=== PATIENT | female | born 2000 | race Caucasian/White ===

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

== ENCOUNTER 2019-04-06 00:15 | Emergency (ER) | payer OTHER ==
[2019-04-06 01:33] LABS: APPEARANCE,URINE SLIGHTLY-CLOUDY; BILIRUBIN,URINE NEGATIVE (NEGATIVE); COLOR,URINE YELLOW; GLUCOSE, URINE NEGATIVE (NEGATIVE); KETONES,URINE TRACE mg/dL (NEGATIVE); LEUKOCYTE ESTERASE,URINE NEGATIVE (NEGATIVE); NITRITE,URINE NEGATIVE (NEGATIVE); PROTEIN,URINE NEGATIVE (NEGATIVE); URINE SPECIFIC GRAVITY 1.021; UROBILINOGEN,URINE NEGATIVE mg/dL (<2.0)
[2019-04-06] MEDS ORDERED: KETOROLAC TROMETHAMINE INJ/PF 30 MG/1 ML SDV IM ONE (02:05)
--- NOTE | 2019-04-06 02:06 | ER Document Report ---
ED General - General Chief Complaint: Abdominal Pain Stated Complaint: ABDOMINAL PAIN Time Seen by Provider: 04/06/19 01:02 Primary Care Provider: ESTRADA SCOTT MD [ACTIVE STAFF] - Follow up in 3-5 days Notes: Patient is a 18-year-old female who presents with complaint of chronic intermittent suprapubic and lower abdominal pain. Says it has feels like uterine cramping. She is being followed by primary care physician was told that she may have pelvic congestion syndrome. She is waiting for referral to an DOUBLE HEAD MACHINE OPERATOR physician. Tonight the pain was more intense than usual. She is prescribed dicyclomine but says it was not working tonight and therefore came to the ER. No abnormal vaginal discharge or bleeding. She is sexually monogamous. She denies concern for sexually transmitted diseases. No fevers. No vomiting. No diarrhea. No other complaints at this time. TRAVEL OUTSIDE OF THE [place] IN LAST 30 DAYS: No - Related Data Allergies/Adverse Reactions: albuterol Allergy (Verified 08/28/17 15:58) hydrocodone Allergy (Verified 08/28/17 15:58) prednisone Allergy (Verified 08/28/17 15:58) Past Medical History - Social History Smoking Status: Former Smoker Frequency of alcohol use: Rare Drug Abuse: None Family History: Reviewed & Not Pertinent Patient has suicidal ideation: No Patient has homicidal ideation: No Pulmonary Medical History: Reports: Hx Asthma Neurological Medical History: Reports: Hx Migraine, Hx Seizures - Last seizure end of 2017 Renal/ Medical History: Denies: Hx Peritoneal Dialysis Review of Systems - Review of Systems Notes: My Normal Review Basic REVIEW OF SYSTEMS: CONSTITUTIONAL : Denies fever, chills, or sweats. Denies recent illness. EENT: Denies eye, ear, throat, or mouth pain or symptoms. Denies nasal or sinus congestion. RESPIRATORY: Denies cough, cold, or chest congestion. Denies shortness of breath, difficulty breathing, or wheezing. GASTROINTESTINAL: Lower abdominal pain. Denies nausea, vomiting, or diarrhea. GENITOURINARY: Denies difficulty urinating, painful urination, burning, frequency, or blood in urine. FEMALE GENITOURINARY: Denies vaginal bleeding, abnormal or irregular periods. MUSCULOSKELETAL: Denies neck or back pain or joint pain or swelling. SKIN: Denies rash or skin lesions. NEUROLOGICAL: Denies altered mental status or loss of consciousness. Denies headache. Denies weakness or paralysis or loss of use of either side. Denies problems with gait or speech. Denies sensory or motor loss. ALL OTHER SYSTEMS REVIEWED AND NEGATIVE. Physical Exam - Vital signs Vitals: Temp Pulse Resp BP Pulse Ox 98.2 F 63 16 114/74 99 04/06/19 00:30 04/06/19 00:30 04/06/19 00:30 04/06/19 00:30 04/06/19 00:30 - Notes Notes: General Appearance: Well nourished, alert, cooperative, no acute distress, no obvious discomfort. Vitals: reviewed, See vital signs table. Eyes: PERRL, EOMI, Conjuctiva clear Lungs: No wheezing, No rales, No rhonci, No accessory muscle use, good air exchange bilaterally. Heart: Normal rate, Regular rythm, No murmur, no rub Abdomen: Normal BS, soft, No rigidity, mild suprapubic abdominal tenderness palpation, No guarding, no rebound, no abdominal masses, no organomegaly Pelvic exam: Pelvic exam performed with female RN, Dayana Ross, at bedside. Pelvic exam shows normal external genitalia. Some whitish discharge in vaginal vault. No blood. No pain on exam. Extremities: good pulses in all extremities, no swelling or tenderness in the extremities, no edema. Skin: warm, dry, appropriate color, no rash Neuro: speech clear, oriented x 3, normal affect, responds appropriately to questions. Course - Vital Signs Vital signs: Temp Pulse Resp BP Pulse Ox 98.4 F 65 18 112/65 98 04/06/19 03:55 04/06/19 03:55 04/06/19 03:55 04/06/19 03:55 04/06/19 03:55 - Laboratory Laboratory results interpreted by me: 04/06/19 01:10 Urine Ketones TRACE H Discharge - Discharge Clinical Impression: Bacterial vaginosis Abdominal pain Qualifiers: Abdominal location: lower abdomen, unspecified Qualified Code(s): R10.30 - Lower abdominal pain, unspecified Condition: Good Disposition: HOME, SELF-CARE Additional Instructions: Please take the metronidazole as prescribed. Your vaginal swab did show evidence of bacterial vaginosis. This could be contributing to your pain. Being that you have chronic recurrent pain the diagnosis of pelvic congestion syndrome still possible. Also consideration would be to have your IUD removed as this could also be causing irritation and pain in your uterus. Please follow-up with the supply room clerk. The supply room clerk master of ceremonies is Dr. Estrada Scott. Please call his office to make a follow-up appointment. Please return to ER immediately if you have fevers, worsening pain, abnormal discharge, or if you feel unwell. There is one other pelvic swab that is pending results. These results usually come back in 24 hours. If the results are positive we will call you and make you aware and call and appropriate treatment for you. Prescriptions: Metronidazole [Flagyl 500 mg Tablet] 500 mg PO BID #14 tablet Referrals: ESTRADA SCOTT MD [ACTIVE STAFF] - Follow up in 3-5 days
[2019-04-06 02:11] LABS: BACTERIA (WET MOUNT) 3+ BACTERIA SEEN; EPITHELIALS (WET MOUNT) 3+ EPITHELIALS SEEN; RBCS (WET MOUNT) FEW RBCS SEEN; T.VAGINALIS (WET MOUNT) NO TRICHOMONAS SEEN; WBCS (WET MOUNT) FEW WBCS SEEN; YEAST (WET MOUNT) NO YEAST SEEN
[2019-04-06] MEDS ORDERED: ACETAMINOPHEN 325 MG TABLET PO ONE (02:17)
[2019-04-06] MEDS ORDERED: IBUPROFEN 800 MG TABLET PO ONE (02:17)
--- NOTE | 2019-04-06 03:19 | RADIOLOGY REPORT (SQ) ---
EXAM: Ultrasound non-OB pelvis with Doppler CLINICAL DATA: 18-year-old female with pelvic pain TECHNICAL DATA: Ultrasound imaging of the pelvis was performed endovaginally on 04/06/2019 at 2:53 AM. COMPARISONS: None FINDINGS: The uterus is normal in size, shape and echogenicity and measures 8.2 x 5.3 x 3.6 cm. There is a linear area of increased echogenicity within the endometrial canal consistent with the patient's known intrauterine device. There is no evidence of endometrial fluid. The cervix measures 2.9 cm in length. The right ovary measures 3.0 x 1.6 x 2.2 cm. The right ovary contains normal follicles. Doppler imaging demonstrates normal pulsed and color Doppler flow. The left ovary measures 3.2 x 1.6 x 2.4 cm. The left ovary contains normal follicles. There may be a small hemorrhagic cyst arising from the left ovary measuring 1.2 x 1.5 x 1.0 cm. No follow-up imaging is recommended. Doppler imaging demonstrates normal pulsed and color Doppler flow. There is no free fluid in the pelvis. IMPRESSION: 1. Intrauterine device present in grossly satisfactory position. 2. Otherwise, normal pelvic ultrasound.
[2019-04-06 03:25] LABS: CHLAM PCR NOT DETECTED (NOT DETECT)
[2019-04-06] MEDS ORDERED: METRONIDAZOLE 500 MG TABLET PO ONE (03:39)
[2019-04-06] MEDS ORDERED: ONDANSETRON ODT 4 MG TAB (6 TAB/ER DISP) PO PRN (03:48)
[2019-04-06 04:02] VITALS: BP 112/65
== END 2019-04-06 04:01 | disposition home or self-care (01) ==
LOC: ER 00:15
DX: N76.0 Acute vaginitis (principal); B96.89 Other specified bacterial agents as the cause of diseases classified elsewhere; R10.30 Lower abdominal pain, unspecified; J45.909 Unspecified asthma, uncomplicated; Z88.8 Allergy status to other drugs, medicaments and biological substances; Z88.5 Allergy status to narcotic agent; Z87.891 Personal history of nicotine dependence
CPT/HCPCS: 76856; 81001; 81025; 87210; 87491; 87591; 93976; 99284

== ENCOUNTER 2019-08-01 10:31 | Emergency (ER) | payer SELFPAY ==
[2019-08-01] MEDS ORDERED: NORMAL SALINE 1000 ML 1,000 ML IV ONE ×2 (10:45→17:46)
--- NOTE | 2019-08-01 10:45 | ER Document Report ---
ED General - General Stated Complaint: POSSIBLE OVERDOSE Time Seen by Provider: 08/01/19 10:43 TRAVEL OUTSIDE OF THE [place] IN LAST 30 DAYS: No - HPI Patient complains to provider of: overdose Notes: Attempted suicide with overdose. Patient took approximately 15 mg risperidone. Patient also took up to 800 mg of Bentyl. This was an attempt to kill herself. These were her personal meds. Patient ingested them about 1 hour prior to arrival here. When EMS got to patient. They did administer 25 g of charcoal. Patient is getting more more somnolent. Concerns for hypotension prehospital systolic blood pressure is 82 and decreasing mental status. Patient presents the emergency department answering questions appropriately. Blood pressure low 90s. - Related Data Allergies/Adverse Reactions: albuterol Allergy (Verified 08/28/17 15:58) hydrocodone Allergy (Verified 08/28/17 15:58) prednisone Allergy (Verified 08/28/17 15:58) Past Medical History - Social History Smoking Status: Unknown if Ever Smoked Family History: Reviewed & Not Pertinent Pulmonary Medical History: Reports: Hx Asthma Neurological Medical History: Reports: Hx Migraine, Hx Seizures - Last seizure end of 2017 Renal/ Medical History: Denies: Hx Peritoneal Dialysis Review of Systems - Review of Systems Notes: REVIEW OF SYSTEMS: CONSTITUTIONAL: -fevers, -chills EENT: -eye pain, -difficulty swallowing, -nasal congestion CARDIOVASCULAR: -chest pain, -syncope. RESPIRATORY: -cough, -SOB GASTROINTESTINAL: -abdominal pain, -nausea, -vomiting, -diarrhea GENITOURINARY: -dysuria, -hematuria MUSCULOSKELETAL: -back pain, -neck pain SKIN: -rash or skin lesions. HEMATOLOGIC: -easy bruising or bleeding. LYMPHATIC: -swollen, enlarged glands. NEUROLOGICAL: -altered mental status or loss of consciousness, -headache, - neurologic symptoms PSYCHIATRIC: suicidal ALL OTHER SYSTEMS REVIEWED AND NEGATIVE. Physical Exam - Vital signs Vitals: Temp Pulse Resp BP Pulse Ox 97.9 F 58 L 16 105/65 100 08/01/19 10:38 08/01/19 10:38 08/01/19 10:38 08/01/19 10:38 08/01/19 10:38 - Notes Notes: PHYSICAL EXAMINATION: GENERAL: Severe acute distress HEAD: Atraumatic, normocephalic. EYES: Pupils equal round and reactive to light, extraocular movements intact, sclera anicteric, conjunctiva are normal. ENT: nares patent, oropharynx clear without exudates. Moist mucous membranes. NECK: Normal range of motion, supple without lymphadenopathy LUNGS: Breath sounds clear to auscultation bilaterally and equal. No wheezes rales or rhonchi. HEART: Regular rate and rhythm without murmurs ABDOMEN: Soft, nontender, normoactive bowel sounds. No guarding, no rebound. No masses appreciated. EXTREMITIES: Normal range of motion, no pitting or edema. No cyanosis. NEUROLOGICAL: Cranial nerves grossly intact. Normal speech, normal gait. Normal sensory and motor exams. PSYCH: flatten affect Course - Re-evaluation Re-evalutation: 08/01/19 10:51 Critically ill-appearing female presents with significant overdose with risperidone and Bentyl. Emergent 2 large-bore IVs established extensive lab work-up, extensive fluid resuscitation also commenced. This is can have significant anticholinergic effects along with [employer] depression. Patient at this time is mentating well answering question appropriately. Patient has mild tachycardia and hypotension. Patient given a liter of fluid blood pressure improving. Patient denies all physical complaints at this time. 08/01/19 12:15 Patient's extensive lab work-up shows no coingestions with Tylenol or aspirin. EKG has no QR QTc elongation. Patient is given magnesium for possible QTC elongation. Patient's systolic blood pressure near her baseline 107. Patient is mildly somnolent but management her airway well no need for intubation at this time. Patient not requiring pressors although they are at bedside. Advanced airway is also bedside. Patient will be admitted under involuntary commitment paperwork for further evaluation. - Vital Signs Vital signs: Temp Pulse Resp BP Pulse Ox 97.9 F 58 L 16 105/65 100 08/01/19 10:38 08/01/19 10:38 08/01/19 10:38 08/01/19 10:38 08/01/19 10:38 - Laboratory Result Diagrams: 08/01/19 10:42 08/01/19 10:32 Laboratory results interpreted by me: 08/01/19 08/01/19 10:32 10:42 WBC 3.9 L Glucose 111 H Salicylates < 1.0 L Acetaminophen < 10 L Critical Care Note - Critical Care Note Total time excluding time spent on procedures (mins): 36 Discharge - Discharge Clinical Impression: Suicidal overdose Qualifiers: Encounter type: initial encounter Qualified Code(s): T50.902A - Poisoning by unspecified drugs, medicaments and biological substances, intentional self-harm, initial encounter Condition: Stable Disposition: PSYCH HOSP/UNIT
[2019-08-01] MEDS: MAGNESIUM SULFATE/D5W 1 GM/100 ML RTUPB IV SCH ×2 (11:04→12:20)
[2019-08-01 11:24] LABS: ABSOLUTE LYMPHOCYTES (AUTO) 1.6 10^3/uL (0.5-4.7); ABSOLUTE MONOCYTES (AUTO) 0.3 10^3/uL (0.1-1.4); BASOPHILS % (AUTO) 0.7 % (0-2); EOSINOPHILS % (AUTO) 0.9 % (0-6); HEMATOCRIT 42.4 % (36.0-47.0); HEMOGLOBIN 14.2 g/dL (12.0-15.5); LYMPHOCYTES % (AUTO) 39.5 % (13-45); MEAN CORPUSCULAR HEMOGLOBIN 28.7 pg (27.0-33.4); MEAN CORPUSCULAR HGB CONC 33.4 g/dL (32.0-36.0); MEAN CORPUSCULAR VOLUME 86 fl (80-97); MONOCYTES % (AUTO) 8.4 % (3-13); PLATELET COUNT 193 10^3/uL (150-450); RED BLOOD COUNT 4.93 10^6/uL (3.72-5.28); SEGMENTED NEUTROPHILS % (AUTO) 50.5 % (42-78); TOTAL CELLS COUNTED % (AUTO) 100 %; WHITE BLOOD COUNT 3.9 10^3/uL (4.0-10.5)
[2019-08-01 11:33] LABS: ALBUMIN 4.5 g/dL (3.5-5.0); ALKALINE PHOSPHATASE 44 U/L (38-126); ANION GAP 11 (5-19); ASPARTATE AMINO TRANSFERASE 20 U/L (14-36); BILIRUBIN,DIRECT 0.2 mg/dL (0.0-0.4); BILIRUBIN,TOTAL 0.6 mg/dL (0.2-1.3); BLOOD UREA NITROGEN 11 mg/dL (7-20); CALCIUM 9.8 mg/dL (8.4-10.2); CARBON DIOXIDE 24 mmol/L (22-30); CHLORIDE 106 mmol/L (98-107); GLUCOSE 111 mg/dL (75-110); POTASSIUM 3.9 mmol/L (3.6-5.0); TOTAL PROTEIN 7.5 g/dL (6.3-8.2)
[2019-08-01 11:51] LABS: ACETAMINOPHEN < 10 ug/mL (10-30); SALICYLATE < 1.0 mg/dL (2.0-20.0)
--- NOTE | 2019-08-01 13:53 | PSYCHOLOGICAL NOTE ---
Psych Note - Psych Note Date seen by psych provider: 08/01/19 Time seen by psych provider: 13:30 Psych Note: Reason for Consult: Intentional Overdose Patient arrived to [facility] ED after attempted suicide with overdose. Patient took approximately 15 mg risperidone. Patient also took up to 800 mg of Bentyl. Patient is unable to effectively engage in evaluation. She attempts to engage; however, her attention and concentration is severely impaired. She is unable to finish sentences and is unable to provided history. Patient is recommended for [facility] for continued mental health observation. She will be re-evaluated.
[2019-08-01] MEDS ORDERED: LORAZEPAM INJ 2 MG/1 ML VIAL IV ONE (17:43)
[2019-08-01] MEDS ORDERED: MAGNESIUM SULFATE/D5W 1 GM/100 ML RTUPB IV ONE (17:45)
--- NOTE | 2019-08-01 17:46 | ER Document Report ---
Doctor's Note Notes: 08/01/19 17:43 Called to patient's room, patient seizing. She did have blood trickling out of her mouth from biting down on her tongue. By the time I arrived she is not having any generalized tonic clonic seizure activity, but she continued to be seizing. She was administered 2 mill grams of IV Ativan. Seizure precautions and already been in place. Given the significant prolongation of the QTc interval associated with her meds, repeat EKG was ordered. QTc interval on most recent EKG is 489, which is an increase. IV magnesium ordered. Oxygen placed. We will continue to monitor. 08/01/19 17:45 08/02/19 02:01 I went back in to evaluate the patient. She is coherent, able to answer questions appropriately. On exam she is awake, alert, oriented. She has no focal neurological deficits. She does have a significant tongue contusion and abrasion on the left side of her anterior tongue, but no active bleeding is noted. Discussed her seizure. She does have a history of absent seizures, but never a grand mal such as this. My suspicion is that this is all medication overdose effects, but she should not be cleared for driving. She voiced understanding to this. Awaiting psychiatric evaluation, she is medically cleared.
--- NOTE | 2019-08-01 21:16 | EKG REPORT ---
SEVERITY:- ABNORMAL ECG - SINUS TACHYCARDIA INCOMPLETE RIGHT BUNDLE BRANCH BLOCK BORDERLINE PROLONGED QT INTERVAL : Confirmed by: Jamil Renteria MD 01-Aug-2019 21:15:29
[2019-08-01 21:50] LABS: APPEARANCE,URINE CLEAR; BILIRUBIN,URINE NEGATIVE (NEGATIVE); COLOR,URINE YELLOW; GLUCOSE, URINE NEGATIVE (NEGATIVE); KETONES,URINE NEGATIVE (NEGATIVE); LEUKOCYTE ESTERASE,URINE NEGATIVE (NEGATIVE); NITRITE,URINE POSITIVE (NEGATIVE); PROTEIN,URINE NEGATIVE (NEGATIVE); URINE SPECIFIC GRAVITY 1.011; UROBILINOGEN,URINE NEGATIVE mg/dL (<2.0)
[2019-08-01 22:08] LABS: URINE AMPHETAMINES SCREEN NEGATIVE; URINE BARBITURATES SCREEN NEGATIVE; URINE BENZODIAZEPINES SCREEN NEGATIVE; URINE COCAINE SCREEN NEGATIVE; URINE MARIJUANA (THC) SCREEN NEGATIVE; URINE METHADONE SCREEN NEGATIVE; URINE PHENCYCLIDINE SCREEN NEGATIVE
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
[2019-08-03] MEDS ORDERED: ACETAMINOPHEN 325 MG TABLET PO ONE (08:32)
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
[2019-08-03] MEDS: OLANZAPINE 2.5 MG TABLET PO SCH (18:11)
--- NOTE | 2019-08-03 18:23 | PSYCHOLOGICAL NOTE ---
Psych Note - Psych Note Date seen by psych provider: 08/03/19 Time seen by psych provider: 08:50 Psych Note: Date seen by psych provider: 08/03/19 Time seen by psych provider: 08:50 Psych Note: Reason For Consult:SI Consent Permissions:Ex , Antoine Becerra and Jam guevara Check in conducted with patient. Ex , Antoine, was in the room with patient. Patient gave verbal consent to speak freely with Antoine, who volunteered to be a support system. Patient was initially agreeable to this, however, later, expressed some hesitation because ex is remarried. Patient cannot identify an individual who can provide support. Patient was provided access to phone to begin making contact to possible sources of support, however per report from nursing staff, patient spent the time "in conversation not to get help." Patient has no stable source of housing, food, or transportation. Patient became tearful as she becomes more aware of the severity of her situation. Diagnosis: By history, Bipolar and Schizoaffective disorder. Medication recommendations per [facility]'s contracted psychiatrist Dr. Brandy BRAVO are as follows Zyprexia 2.5MG 2x daily Impression\\plan: Medication was prescribed to manage mood and impulse control. Plan is to discharge patient to [facility] tomorrow. Dr. Shafer was consulted to care management of this patient; attending physicians in agreement with recommendations and disposition.
[2019-08-04] MEDS: OLANZAPINE 2.5 MG TABLET PO SCH (09:56)
--- NOTE | 2019-08-04 10:55 | ER Document Report ---
Doctor's Note Notes: 08/04/19 10:51 S: 19-year-old female in the emergency department after she attempted overdose 2 days ago. She is feeling much better today. She states that she is not feeling suicidal. She has been staffed by Taylor from [facility] and we agree on plan to have patient discharged to patient's ex- and new . New will mixing picker tender patient at 1 PM today. Patient will go home on Zyprexa 2.5 mg twice daily. She will follow-up with provide for therapy on the . Taylor has explained to patient and of ex-'s that they will need to control her medicines. Patient states that she feels good today. O: Constitutional: Sitting up in bed, has gotten breakfast and in no acute distress Cardiac: Regular rate and rhythm, no rubs, gallops, or murmurs. Respiratory: No acute respiratory distress. Lungs are clear bilaterally. No wheezes, rhonchi, rales. Abdomen: Soft, nontender, nondistended. Neuro: Cranial nerves II through XII intact, no pronator drift, normal [id number], no leg drift patient is oriented to person place Psych: Interactive and friendly No SI, HI or hallucinations. A/P: Patient to be discharged today taking care of ex- and ex- spouse. She will be discharged with Zyprexa. There is plan for follow-up outpatient [facility]. Patient agrees with the plan.
[2019-08-04 11:37] VITALS: BP 111/68
--- NOTE | 2019-08-04 12:01 | EKG REPORT ---
SEVERITY:- BORDERLINE ECG - SINUS ARRHYTHMIA, RATE 56-86 INCOMPLETE RIGHT BUNDLE BRANCH BLOCK : Confirmed on behalf of: Jamil Renteria MD 04-Aug-2019 12:00:21
--- NOTE | 2019-08-05 12:05 | PSYCHOLOGICAL NOTE ---
Psych Note - Psych Note Date seen by psych provider: 08/04/19 Time seen by psych provider: 09:24 - Chart review at 0924 then went to reevaluate but patient in shower. Evaluation from [id number]. Spoke to ex husbands in person regarding plan of care just prior to discharge. Psych Note: Presenting Problem: IVC, OD of Risperdal, relationship distress/problems and depression. Yesterday was the first day patient was able to engage in an evaluation. Also started medication (Zyprexa 2.5MG BID) to aid with mood stabilization and impulse control. Today patient noted some nausea last night but otherwise no side effects. She was instructed to take medication with water and something small to eat like a cracker to avoid nausea but if it continued to inform doctor she would be linked to. She denied SI and stated she felt "better." She stated she is unsure if the Risperdal she Scar on was hers from previously or her fiance's and denied having access to any other old medications. Mood was more euthymic with improved/brighter affect. She agreed to plan of care for discharge which included her ex . She made phone call for arrangements and ex husbands would be the one providing transportation. Spoke to her in person prior to discharge. Informed her other adults needed to be in charge of medication an administration which she agreed to. She was made aware of linkage to outpatient provider and upcoming appointment. Patient presented alert and oriented x5 with linear thinking, she denied current SI/HI, she denied having access to any other medications, ex 's aware and agreed other adults would be in charge of medication/administration, mood was more euthymic with improved/brighter affect, she was able to engage and carry on dialogue conversation which was within normal limits for rate/tone/prosody. Diagnosis: Bipolar Disorder by Hx Impression/Plan: Patient is cleared from acute psychiatric services. Recommendation to rescind IVC. Patient presented alert and oriented x5 with linear thinking, she denied current SI/HI, she denied having access to any other medications, ex 's aware and agreed other adults would be in charge of medication/administration, mood was more euthymic with improved/brighter affect, she was able to engage and carry on dialogue conversation which was within normal limits for rate/tone/prosody. Ex and his included in plan of care, have offered for patient to reside in their home and ex 's provided transportation. Patient scheduled outpatient follow up with [facility] on 08/07/19 at 0800 for initial appointment where therapy and medication appointments will be provided. Patient provided with the outpatient MH resource sheet which documented appointment date and time as well as highlighted IFS MCM. Consulted with Dr. Shafer regarding the management and care of patient. ED Physician in agreement with recommendations.
== END 2019-08-04 14:15 | disposition home or self-care (01) ==
LOC: ER 10:31
DX: T43.592A Poisoning by other antipsychotics and neuroleptics, intentional self-harm, initial encounter (principal); F32.9 Major depressive disorder, single episode, unspecified; R56.9 Unspecified convulsions; S00.512A Abrasion of oral cavity, initial encounter; X58.XXXA Exposure to other specified factors, initial encounter; Z63.0 Problems in relationship with spouse or partner; Z88.6 Allergy status to analgesic agent
CPT/HCPCS: 93005; 99291; 96361; 96375; 96365; 96366; 36415; 84702; 80307 ×3; 85025; 81025; 80053; 81001; 93010; J3490 ×2; J2060; J3475; J7030

== ENCOUNTER 2019-10-09 22:58 | Emergency (ER) | payer SELFPAY ==
--- NOTE | 2019-10-10 01:01 | RADIOLOGY REPORT (SQ) ---
EXAM DESCRIPTION: X-RAY CHEST- TWO VIEWS CLINICAL HISTORY: Shortness of breath COMPARISON: None available TECHNIQUE: 2 views of the chest FINDINGS: There are no discrete air space infiltrates, pneumothoraces or pleural effusions. The pulmonary vascularity is normal. The cardiomediastinal silhouette is normal in size. No suspicious lytic or blastic osseous lesions are identified. IMPRESSION: There are no acute lung parenchymal findings.
--- NOTE | 2019-10-10 04:33 | ER Document Report ---
ED General - General Chief Complaint: Cough Stated Complaint: coughing Time Seen by Provider: 10/10/19 03:38 Notes: 19-year-old female with history of asthma presents with coughing for the past 2 to 3 weeks. Patient states sometimes it is productive with mucus and sometimes it is not. Patient denies any shortness of breath, fever, chest pain, coughing up blood. Patient states NyQuil and DayQuil seem to work however she is unable to always swallow the pills. Patient denies any recent asthma flareups. TRAVEL OUTSIDE OF THE [place] IN LAST 30 DAYS: No - Related Data Allergies/Adverse Reactions: albuterol Allergy (Verified 08/28/17 15:58) hydrocodone Allergy (Verified 08/28/17 15:58) prednisone Allergy (Verified 08/28/17 15:58) Past Medical History - Social History Smoking Status: Never Smoker Family History: Reviewed & Not Pertinent Patient has suicidal ideation: No Patient has homicidal ideation: No Pulmonary Medical History: Reports: Hx Asthma Neurological Medical History: Reports: Hx Migraine, Hx Seizures - Last seizure end of 2017 Renal/ Medical History: Denies: Hx Peritoneal Dialysis Review of Systems - Review of Systems Notes: Constitutional: Negative for fever. HENT: Negative for sore throat. Eyes: Negative for visual changes. Cardiovascular: Negative for chest pain. Respiratory: Positive for cough. Negative for shortness of breath. Gastrointestinal: Negative for abdominal pain, vomiting or diarrhea. Genitourinary: Negative for dysuria. Musculoskeletal: Negative for back pain. Skin: Negative for rash. Neurological: Negative for headaches, weakness or numbness. 10 point ROS negative except as marked above and in HPI. Physical Exam - Vital signs Vitals: Temp Pulse Resp BP Pulse Ox 98.4 F 87 18 146/73 H 100 10/09/19 23:01 10/09/19 23:01 10/09/19 23:01 10/09/19 23:01 10/09/19 23:01 - Notes Notes: GENERAL: Well-appearing, well-nourished and in no acute distress. HEAD: Atraumatic, normocephalic. EYES: Extraocular movements intact, sclera anicteric, conjunctiva are normal. NECK: Normal range of motion, supple without lymphadenopathy or JVD. LUNGS: Breath sounds clear to auscultation bilaterally and equal. No wheezes rales or rhonchi. HEART: Regular rate and rhythm without murmurs, rubs or gallops. EXTREMITIES: Normal range of motion, no pitting or edema. No clubbing or cyanosis. NEUROLOGICAL: Cranial nerves II through XII grossly intact. Normal speech, normal gait. PSYCH: Normal mood, normal affect. SKIN: Warm, Dry, normal turgor, no rashes or lesions noted. Course - Re-evaluation Re-evalutation: 10/10/19 Nontoxic, well-appearing. Lungs are clear to auscultation bilaterally. Patient is 100% on room air. Patient is afebrile. Chest x-ray does not show any pneumonias. Patient given prescription for Tessalon Perles and follow-up with PCP. Strict return precautions given. Discussed all results with patient. Patient voices understanding and agrees with plan of care. - Vital Signs Vital signs: Temp Pulse Resp BP Pulse Ox 98.4 F 87 18 146/73 H 100 10/10/19 00:15 10/10/19 00:15 10/10/19 00:15 10/10/19 00:15 10/10/19 00:15 Discharge - Discharge Clinical Impression: Coughing Condition: Stable Disposition: HOME, SELF-CARE Additional Instructions: Your chest x-ray did not show any pneumonias. Please take Tessalon Perles as prescribed. Please follow-up with your primary care doctor or clinic listed in 1 week. Return to ER for any worsening symptoms, including fever, worsening cough, coughing up blood, chest pain, shortness of breath, wheezing, abdominal pain, vomiting, or any other symptoms that are concerning to you. Prescriptions: Benzonatate [Tessalon Perles 100 mg Capsule] 100 mg PO Q8HP PRN #40 capsule PRN Reason: Forms: Return to Work Referrals: JOANN SHAH MD [ACTIVE STAFF] - Follow up in 1 week
[2019-10-10 04:56] VITALS: BP 122/85
== END 2019-10-10 04:54 | disposition home or self-care (01) ==
LOC: ER 22:58
DX: R05 Cough (principal); Z88.6 Allergy status to analgesic agent
CPT/HCPCS: 71046; 99283

== ENCOUNTER 2019-10-18 12:16 | Emergency (ER) | payer SELFPAY ==
--- NOTE | 2019-10-18 13:23 | ER Document Report ---
ED Medical Screen (RME) - General Chief Complaint: Cough Stated Complaint: DIFFICULTY BREATHING/COUGHING UP BLOOD Time Seen by Provider: 10/18/19 13:17 Mode of Arrival: Ambulatory Information source: Patient Notes: 19-year-old female presents emergency department with recent diagnosis for bronchitis. Reports cough continues. Also reports pain with void. Reports she has a history of asthma and kidney disease. Reports right flank pain and fever started last 2 days. I have greeted and performed a rapid initial assessment of this patient. A comprehensive ED assessment and evaluation of the patient, analysis of test results and completion of the medical decision making process will be conducted by additional ED providers. TRAVEL OUTSIDE OF THE [place] IN LAST 30 DAYS: No - Related Data Allergies/Adverse Reactions: albuterol Allergy (Verified 10/18/19 13:21) hydrocodone Allergy (Verified 10/18/19 13:21) prednisone Allergy (Verified 10/18/19 13:21) Past Medical History - Social History Chew tobacco use (# tins/day): No Frequency of alcohol use: None Drug Abuse: None Pulmonary Medical History: Reports: Hx Asthma Neurological Medical History: Reports: Hx Migraine, Hx Seizures - Last seizure end of 2017 Renal/ Medical History: Denies: Hx Peritoneal Dialysis Physical Exam - Vital signs Vitals: Temp Pulse Resp BP Pulse Ox 98.5 F 99 18 117/79 98 10/18/19 12:47 10/18/19 12:47 10/18/19 12:47 10/18/19 12:47 10/18/19 12:47 Course - Vital Signs Vital signs: Temp Pulse Resp BP Pulse Ox 98.5 F 99 18 117/79 98 10/18/19 12:47 10/18/19 12:47 10/18/19 12:47 10/18/19 12:47 10/18/19 12:47
[2019-10-18 13:58] LABS: ABSOLUTE LYMPHOCYTES (AUTO) 0.8 10^3/uL (0.5-4.7); ABSOLUTE MONOCYTES (AUTO) 0.8 10^3/uL (0.1-1.4); BASOPHILS % (AUTO) 0.6 % (0-2); EOSINOPHILS % (AUTO) 0.2 % (0-6); HEMOGLOBIN 15.5 g/dL (12.0-15.5); LYMPHOCYTES % (AUTO) 17.8 % (13-45); MEAN CORPUSCULAR HEMOGLOBIN 29.6 pg (27.0-33.4); MEAN CORPUSCULAR HGB CONC 34.4 g/dL (32.0-36.0); MEAN CORPUSCULAR VOLUME 86 fl (80-97); MONOCYTES % (AUTO) 16.4 % (3-13); PLATELET COUNT 214 10^3/uL (150-450); RED BLOOD COUNT 5.23 10^6/uL (3.72-5.28); RED CELL DISTRIBUTION WIDTH 13.4 % (11.5-14.0); TOTAL CELLS COUNTED % (AUTO) 100 %; WHITE BLOOD COUNT 4.6 10^3/uL (4.0-10.5)
--- NOTE | 2019-10-18 14:03 | RADIOLOGY REPORT (SQ) ---
EXAM DESCRIPTION: CHEST 2 VIEWS COMPLETED DATE/TIME: 10/18/2019 1:54 pm REASON FOR STUDY: cough, fever COMPARISON: 10/10/2019 TECHNIQUE: Frontal and lateral radiographic views of the chest acquired. NUMBER OF VIEWS: Two view. LIMITATIONS: None. FINDINGS: LUNGS AND PLEURA: Chronic calcified nodule left upper lobe suggestive of previous granulom atous disease. No acute infiltrates or suspicious opacities. No pneumothorax. MEDIASTINUM AND HILAR STRUCTURES: No masses or contour abnormalities. HEART AND VASCULAR STRUCTURES: Heart normal size. No evidence for failure. BONES: No acute findings. HARDWARE: None in the chest. OTHER: No other significant finding. IMPRESSION: No acute or suspicious cardiopulmonary changes. TECHNICAL DOCUMENTATION: JOB ID: [id number] [employer]- All Rights Reserved Reading location - IP/workstation name: [email or web address]
[2019-10-18 14:04] LABS: APPEARANCE,URINE CLOUDY; BILIRUBIN,URINE NEGATIVE (NEGATIVE); COLOR,URINE YELLOW; GLUCOSE, URINE NEGATIVE (NEGATIVE); KETONES,URINE NEGATIVE (NEGATIVE); PROTEIN,URINE 100 mg/dL (NEGATIVE); URINE SPECIFIC GRAVITY 1.025; UROBILINOGEN,URINE NEGATIVE mg/dL (<2.0)
[2019-10-18 14:13] LABS: ALBUMIN 4.9 g/dL (3.5-5.0); ALKALINE PHOSPHATASE 47 U/L (38-126); ANION GAP 14 (5-19); ASPARTATE AMINO TRANSFERASE 21 U/L (14-36); BILIRUBIN,DIRECT 0.3 mg/dL (0.0-0.4); BILIRUBIN,TOTAL 0.3 mg/dL (0.2-1.3); BLOOD UREA NITROGEN 8 mg/dL (7-20); CALCIUM 9.3 mg/dL (8.4-10.2); CARBON DIOXIDE 27 mmol/L (22-30); CHLORIDE 101 mmol/L (98-107); GLUCOSE 87 mg/dL (75-110); POTASSIUM 3.9 mmol/L (3.6-5.0); TOTAL PROTEIN 8.2 g/dL (6.3-8.2)
--- NOTE | 2019-10-18 14:38 | ER Document Report ---
ED General - General Chief Complaint: Cough Stated Complaint: DIFFICULTY BREATHING/COUGHING UP BLOOD Time Seen by Provider: 10/18/19 13:17 Primary Care Provider: [facility] [NO LOCAL MD] - Follow up as needed Mode of Arrival: Ambulatory TRAVEL OUTSIDE OF THE [place] IN LAST 30 DAYS: No - HPI Context: Patient with history of asthma who does not take any medication presents with approximately 1 month of shortness of breath that is wax and wane. Intermittent mucus production and coughing up blood at times with blood-tinged sputum. No history of blood clots in her lungs or legs denies any chest pain or shortness of breath at this current time. For 1 week she also been having burning with urination and increased frequency with right flank pain. She states she had a fever of 102 last night but no fever in the emergency department normal vitals has not taken any antipyretics since last night. - Related Data Allergies/Adverse Reactions: albuterol Allergy (Verified 10/18/19 13:21) hydrocodone Allergy (Verified 10/18/19 13:21) prednisone Allergy (Verified 10/18/19 13:21) Past Medical History - General Information source: Patient - Social History Smoking Status: Never Smoker Chew tobacco use (# tins/day): No Frequency of alcohol use: None Drug Abuse: None Family History: Reviewed & Not Pertinent Patient has suicidal ideation: No Patient has homicidal ideation: No Pulmonary Medical History: Reports: Hx Asthma Neurological Medical History: Reports: Hx Migraine, Hx Seizures - Last seizure end of 2017 Renal/ Medical History: Denies: Hx Peritoneal Dialysis Review of Systems - Review of Systems Constitutional: No symptoms reported EENT: No symptoms reported Cardiovascular: No symptoms reported Respiratory: See HPI Gastrointestinal: No symptoms reported Genitourinary: No symptoms reported Female Genitourinary: See HPI Musculoskeletal: No symptoms reported Skin: No symptoms reported Hematologic/Lymphatic: No symptoms reported Neurological/Psychological: No symptoms reported Physical Exam - Vital signs Vitals: Temp Pulse Resp BP Pulse Ox 98.5 F 99 18 117/79 98 10/18/19 12:47 10/18/19 12:47 10/18/19 12:47 10/18/19 12:47 10/18/19 12:47 - General General appearance: Appears well, Alert - HEENT Head: Normocephalic, Atraumatic Eyes: Normal Conjunctiva: Normal Cornea: Normal Extraocular movements intact: Yes Pupils: PERRL Nasal: Normal Mouth/Lips: Normal Mucous membranes: Normal - Respiratory Respiratory status: No respiratory distress Chest status: Nontender Breath sounds: Normal - Cardiovascular Rhythm: Regular Heart sounds: Normal auscultation Murmur: No - Abdominal Inspection: Normal Distension: No distension Bowel sounds: Normal - Back Back: Normal. No: CVA tenderness - Psychological Associated symptoms: Normal affect Course - Re-evaluation Re-evalutation: 10/18/19 14:49 X-ray shows no acute disease, urinalysis signs of UTI patient is not . Normal vitals afebrile. Upon chart review patient's urine culture in 2017 was pansensitive. Will provide Keflex. 10/18/19 16:05 No evidence of urinary calculi. Patient does show signs of urinary tract infection will provide Keflex. Patient states she is short of breath but she is not tachypneic and she is not hypoxic. She states she does have a history of asthma but states that she has cardiac arrest when using albuterol. She denied having shortness of breath this time. Right [facility] for follow-up as needed. Return precautions provided 10/18/19 16:08 Of note, she states she has been having intermittent shortness of breath but cannot use albuterol, she has good air movement no crackles or wheezes on exam. - Vital Signs Vital signs: Temp Pulse Resp BP Pulse Ox 98.5 F 99 18 117/79 98 10/18/19 12:47 10/18/19 12:47 10/18/19 12:47 10/18/19 12:47 10/18/19 12:47 - Laboratory Result Diagrams: 10/18/19 13:38 10/18/19 13:38 Laboratory results interpreted by me: 10/18/19 10/18/19 13:38 13:38 [place] % (Auto) 16.4 H Urine Protein 100 H Urine Blood MODERATE H Leukocyte Esterase Rfl MODERATE H Urine Ascorbic Acid 40 H Discharge - Discharge Clinical Impression: History of asthma Urinary tract infection Qualifiers: Urinary tract infection type: site unspecified Hematuria presence: with hematuria Qualified Code(s): N39.0 - Urinary tract infection, site not specified Condition: Good Disposition: HOME, SELF-CARE Instructions: Asthma ([facility]), Cephalexin ([facility]), Urinary Tract Infection ([facility]) Prescriptions: Cephalexin Monohydrate [Keflex 500 mg Capsule] 500 mg PO TID 5 Days #15 capsule Ondansetron [Zofran Odt 4 mg Tablet] 1 tab PO ASDIR PRN #15 tab.rapdis PRN Reason: For Nausea/Vomiting [facility]: [facility] [NO [facility] MD] - Follow up as needed
[2019-10-18] MEDS ORDERED: RINGERS SOLUTION,LACTATED 1,000 ML IV ONE (14:49)
--- NOTE | 2019-10-18 15:49 | RADIOLOGY REPORT (SQ) ---
EXAM DESCRIPTION: CT ABD/PELVIS NO ORAL OR IV COMPLETED DATE/TIME: 10/18/2019 3:35 pm REASON FOR STUDY: hx of kideny stones, states dysuria, dx with UTI COMPARISON: None. TECHNIQUE: CT scan of the abdomen and pelvis performed without intravenous or oral contrast. Images reviewed with lung, soft tissue, and bone windows. Reconstructed coronal and sagittal MPR images revi ewed. All images stored on PACS. All CT scanners at this facility use dose modulation, iterative reconstruction, and/or weight based d osing when appropriate to reduce radiation dose to as low as reasonably achievable (ALARA). [facility]: Dose Right [facility]: CareDose [facility]: Dose Right [facility]: Teradose 4D [facility]: Smart FLS Energy RADIATION DOSE: CT Rad equipment meets quality standard of care and radiation dose reduction techniq ues were employed. CTDIvol: 4.8 mGy. DLP: 223 mGy-cm.mGy. LIMITATIONS: None. FINDINGS: LOWER CHEST: No significant findings. No nodules or infiltrates. NON-CONTRASTED LIVER, SPLEEN, ADRENALS: Evaluation limited by lack of IV contrast. No identified sign ificant masses. PANCREAS: No masses. No peripancreatic inflammatory changes. GALLBLADDER: No identified stones by CT criteria. No inflammatory changes to suggest cholecystitis. RIGHT KIDNEY AND URETER: No solid masses. No significant calcification. No hydronephrosis or hydroure ter. LEFT KIDNEY AND URETER: No solid masses. No significant calcification. No hydronephrosis or hydrouret er. AORTA AND RETROPERITONEUM: No aneurysm. No retroperitoneal masses or adenopathy. BOWEL AND PERITONEAL CAVITY: No obvious masses or inflammatory changes. No free fluid. APPENDIX: Normal. PELVIS, BLADDER, AND ABDOMINAL WALL:No abnormal masses. IUD present in the endometrial cavity. No f ree fluid. Bladder normal. BONES: Bilateral pars defects of L5 with minimal anterolisthesis of L5 on S1. OTHER: No other significant finding. IMPRESSION: 1. No acute noncontrast CT findings to explain right flank pain. No evidence of urinar y tract calculus or hydronephrosis. 2. Normal appendix. 3. Bilateral pars defects of L5. TECHNICAL DOCUMENTATION: JOB ID: [id number] Quality ID # [id number]: Final reports with documentation of one or more dose reduction techniques (e.g., Au tomated exposure control, adjustment of the mA and/or kV according to patient size, use of iterative reconstruction technique) 2010 [employer]- All Rights Reserved Reading location - IP/workstation name: [email or web address]
[2019-10-18 16:26] VITALS: BP 121/66
== END 2019-10-18 16:30 | disposition home or self-care (01) ==
LOC: ER 12:16
DX: N39.0 Urinary tract infection, site not specified (principal); R04.2 Hemoptysis; R06.02 Shortness of breath; R50.9 Fever, unspecified; R30.9 Painful micturition, unspecified; R35.0 Frequency of micturition; R10.9 Unspecified abdominal pain; J45.909 Unspecified asthma, uncomplicated
CPT/HCPCS: 99285; 96360; 36415; 87086; 85025; 81025; 87088; 80053; 81001; 87186; 71046; 74176; J7120